=== PATIENT | male | born 1970 | race Caucasian/White ===

== ENCOUNTER 2022-04-27 13:12 | Emergency (ER) | payer OTHER, SELFPAY ==
--- NOTE | ~2022-04-27 | XR_ITS ---
EXAMINATION: XR chest 2V 04/27/2022 13:56 INDICATION: Cough and congestion PROCEDURE: 2 view chest COMPARISON: No prior studies for comparison. FINDINGS: The lungs are clear. The cardiomediastinal silhouette is within normal limits. There are no pleural effusions. There is no pneumothorax suspected. IMPRESSION: 1: NO ACUTE CARDIOPULMONARY DISEASE. Reviewed, dictated and finalized at location A.
[2022-04-27 13:23] VITALS: BP 153/90; PULSE 108; RESP 20; TEMP 36.5; O2SAT 98
[2022-04-27 13:39] VITALS: BP 153/90; PULSE 108; RESP 20; TEMP 36.5; O2SAT 98
--- NOTE | 2022-04-27 13:49 | ED.GENADULT ---
HPI - General Adult General Chief complaint: Upper Respiratory Infection Stated complaint: Cough/Chest Congestion Source: patient Mode of arrival: ambulatory Limitations: no limitations History of Present Illness HPI narrative: Patient presents for evaluation of sick symptoms since last night. Initial symptom was sore throat. He later developed a cough and mild SOB. She denies any chest pain, vomiting, diarrhea. No recent sick contacts to his knowledge. No personal history of COVID. He recently received his COVID booster. He does not smoke. He is not taking any medications to assist with his symptoms. He states he had 32 hours of vomiting after he received his COVID booster. He states he had childhood asthma but did outgrow it. He has an albuterol inhaler that he uses from time to time. He has an underlying hx of asthma. He states home BS in 200's. No additional complaints or concerns. Related Data Home Medications Medication Instructions Recorded Confirmed adalimumab 40 mg/0.8 mL 40 mg subcut WEEKLY 04/27/22 04/27/22 subcutaneous syringe kit (Humira) atorvastatin 40 mg tablet 40 mg PO DAILY 04/27/22 04/27/22 dulaglutide 4.5 mg/0.5 mL 4.5 mg subcut WEEKLY 04/27/22 04/27/22 subcutaneous pen injector (Trulicity) duloxetine 30 mg capsule,delayed 30 mg PO DAILY 04/27/22 04/27/22 release glimepiride 4 mg tablet 4 mg PO DAILY 04/27/22 04/27/22 insulin glargine 100 unit/mL (3 15 unit subcut QAM 04/27/22 04/27/22 mL) subcutaneous pen (Basaglar KwikPen U-100 Insulin) losartan 100 mg tablet 100 mg PO DAILY 04/27/22 04/27/22 pregabalin 150 mg capsule 150 mg PO TID 04/27/22 04/27/22 Allergies Allergy/AdvReac Type Severity Reaction Status Date / Time No Known Allergies Allergy Verified 04/27/22 13:37 Review of Systems Review of Systems: CONSTITUTIONAL: Denies fever, chills, or sweats. EYES: Denies visual changes, redness, or discharge. ENT: Reports sore throat. Denies rhinorrhea, congestion, or otalgia. CARDIOVASCULAR: Denies chest pain, palpitations, or edema. RESPIRATORY: Denies cough or dyspnea. GASTROINTESTINAL: Denies abdominal pain, nausea, vomiting, or diarrhea. GENITOURINARY: Denies dysuria or hematuria. SKIN: Denies rash or itching. MUSCULOSKELETAL: Denies back pain, joint pain, or myalgia. NEUROLOGIC: Denies headache, numbness, dizziness, or weakness. PSYCHIATRIC: Denies anxiety or depression. [facility] Past Medical History Medical History (Updated 04/27/22 @ 14:14 by Avel Casas, [employer], ) Diabetes Surgical History Surgical History (Updated 04/27/22 @ 13:54 by Avel Casas, [facility], ) No pertinent past surgical history Family History Family History Mother Family history non-contributory Social History Social History Substance use: never Living arrangements: with family Gender identity (if verbalized by the patient): Male Sexual Orientation (if Verbalized by the Patient): Straight or Heterosexual Exam Narrative: GENERAL: Well-appearing, well-nourished, and in no acute distress. HEAD: Normocephalic, atraumatic. EYES: PERRLA and EOMI. ENT: Nares clear, no rhinorrhea or epistaxis. Mucous membranes moist. Oropharynx without tonsillar hypertrophy exudate or other lesions, however there is posterior pharyngeal erythema. Bilateral TMs pearly vizcaino nonbulging NECK: Supple. No adenopathy or masses. No carotid bruits or JVD CHEST: Cough present during time of my evaluation. Clear to auscultation. No respiratory distress. No wheezes rales or rhonchi HEART: Regular rate and rhythm. No murmur heard. Normal peripheral pulses. ABDOMEN: Soft, nontender, nondistended, normal active bowel sounds. EXTREMITIES: Normal range of motion. No edema. SKIN: Warm, dry, no rash. NEURO: No focal deficits. Alert and oriented x3. PSYCH: Normal mood and affect. [place]
== END 2022-04-27 14:15 | disposition home or self-care (01) ==
PROVIDERS: Emergency Provider Nurse Practitioner
DX: J02.9 Acute pharyngitis, unspecified (principal); Z20.822 Contact with and (suspected) exposure to COVID-19; E11.9 Type 2 diabetes mellitus without complications
CPT/HCPCS: 71046; 87081; 87426; 87804; 87880; 99213; C9803; G0463